=== PATIENT | male | born 1955 | race Caucasian/White ===

== ENCOUNTER 2016-12-18 12:49 | Emergency (ER) | payer OTHER ==
[~2016-12-18] VITALS: Ht 177.8 cm; Wt 131.1 kg
[~2016-12-18 12:49] MED LIST: ALLOPURINOL100 MG PO; ASPIRIN EC81 MG PO; HYDROMORPHONE HC4 MG PO; LISINOPRIL-HCT1 EACH PO; MIRALAX17 GM PO; NAPROXEN500 MG PO; OXYCODONE HCL10 MG PO; OXYCODONE HCL5 MG PO; PERCOCET 7.5-31 EACH PO; PRILOSEC20 MG PO; XARELTO10 MG PO
[2016-12-18] MEDS ORDERED: PRINIVIL20 MG PO (13:05)
[2016-12-18] MEDS ORDERED: ELIQUIS5 MG PO (13:06)
[2016-12-18] MEDS ORDERED: GLUCOPHAGE500 MG PO (13:07)
[2016-12-18] MEDS ORDERED: METOPROLOL SUCC50 MG PO (13:09)
[2016-12-18] MEDS ORDERED: FUROSEMIDE20 MG PO (13:21)
--- NOTE | 2016-12-18 14:04 | EKG ---
[facility] [address] [facility] [place], [place] [address] Signed Normal sinus rhythm Incomplete right bundle branch block Possible Right ventricular hypertrophy Nonspecific ST and T wave abnormality Abnormal ECG No previous ECGs available Confirmed by JASON SAEED MD ([id number]) on 12/18/2016 2:04:13 PM Electronically Signed By: JASON SAEED MD 12/18/16 1404 PATIENT NAME: PRASHANTSHANNAKIEL LANDIN Electrocardiogram DATE OF : 57 PHYSICIAN: JASON SAEED MD REPORT #: [id number] REPORT IS CONFIDENTIAL AND NOT TO BE RELEASED WITHOUT AUTHORIZATION
== END 2016-12-18 15:23 | disposition home or self-care (01) ==
LOC: ED 12:49
DX: R06.02 Shortness of breath (principal); I10 Essential (primary) hypertension; I48.91 Unspecified atrial fibrillation; Z79.899 Other long term (current) drug therapy; Z79.84 Long term (current) use of oral hypoglycemic drugs
CPT/HCPCS: 71010; 80048; 84484; 85025; 85610; 93005; 93010; 99284

== ENCOUNTER 2017-12-19 01:08 | Emergency (ER) | payer OTHER ==
[~2017-12-19] VITALS: Ht 177.8 cm; Wt 131.1 kg
[~2017-12-19 01:08] MED LIST changes: +ELIQUIS5 MG PO; +FUROSEMIDE20 MG PO; +GLUCOPHAGE500 MG PO; +METOPROLOL SUCC50 MG PO; +PRINIVIL20 MG PO
--- NOTE | 2017-12-20 14:41 | EKG ---
[facility] [address] [facility] [place] [address] Signed Normal sinus rhythm Rightward axis Borderline ECG When compared with ECG of 18-DEC-2016 12:57, Non-specific change in ST segment in Inferior leads Nonspecific T wave abnormality no longer evident in Anterolateral leads QT has lengthened Confirmed by LUBA JOHNSON DO ([id number]) on 12/20/2017 2:41:03 PM Electronically Signed By: LUBA JOHNSON DO 12/20/17 1441 PATIENT NAME: CERDASHANNA Electrocardiogram DATE OF : 57 PHYSICIAN: LUBA JOHNSON DO REPORT #: [id number] REPORT IS CONFIDENTIAL AND NOT TO BE RELEASED WITHOUT AUTHORIZATION
== END 2017-12-19 05:24 | disposition home or self-care (01) ==
LOC: ED 01:08
DX: R07.89 Other chest pain (principal); J18.9 Pneumonia, unspecified organism; R60.0 Localized edema; I10 Essential (primary) hypertension; E11.9 Type 2 diabetes mellitus without complications; Z87.891 Personal history of nicotine dependence; Z79.84 Long term (current) use of oral hypoglycemic drugs; Z79.899 Other long term (current) drug therapy
CPT/HCPCS: 71046; 71260; 80053; 84484; 85025; 85379; 93005; 93010; 96374; 96375; 99285; J2270; J2405; Q9967

== ENCOUNTER 2018-06-23 05:45 | Day surgery (SDC) | payer OTHER ==
[~2018-06-23] VITALS: Ht 177.8 cm; Wt 130.6 kg
[~2018-06-23 05:45] MED LIST changes: +ASPIR-LOW81 MG PO; +GLUCOPHAGE XR500 MG PO; -GLUCOPHAGE500 MG PO; +PRILOSEC OTC20 MG PO; -PRILOSEC20 MG PO; +PROMETH-CODEIN 65 ML PO; +VENTOLIN HFA18 GM INH; +ZITHROMAX500 MG PO
--- NOTE | 2018-06-23 09:28 | NUR ---
06/23/18 0928 Iram Ceja 0922-PATIENT ARRIVED TO PACU ON 6L MASK RR EVEN. PATIENT AWAKE DROWSY DENIES PAIN OR NAUSEA. DENIES SOB. GLUCOSE CHECKED 154. SR.
--- NOTE | 2018-06-23 10:05 | NUR ---
PT IS BACK TO DS FROM PACU. IS AT THE BEDSIDE. PT IS AWAKE, NOT C/O PAIN OR NAUSEA AT THIS TIME. CALL LIGHT IS WITHIN REACH. WATER ON BEDSIDE TABLE. NO ADDITIONAL NEEDS AT THIS TIME.
--- NOTE | 2018-06-23 10:39 | NUR ---
PT IS HELPED UP OOB TO THE BATHROOM WHERE HE IS ABLE TO VOID 150ML. HE WALKS BACK TO HIS ROOM.
--- NOTE | 2018-06-23 11:23 | NUR ---
LE 1105: PATIENT'S SPOUSE COMES TO THE NURSE'S STATION AND ASKS "WHEN CAN HE GO?". DC INSTRUCTIONS ARE GIVEN AND PATIENT AND SPOUSE BOTH VERBALIZE UNDERSTANDING. PATIENT DRESSING SELF IN PRESENCE OF SPOUSE.
--- NOTE | 2018-06-23 15:31 | OR ---
[facility] [address] [place], [place] [address] Signed DATE OF OPERATION: 06/23/2018 SURGEON: Manjit Recinos MD PREOPERATIVE DIAGNOSES: 1. Progressive mediastinal adenopathy including subcarinal adenopathy. 2. Morbid obesity. POSTOPERATIVE DIAGNOSES: 1. Progressive mediastinal adenopathy including subcarinal adenopathy. 2. Morbid obesity. PROCEDURE PERFORMED: 1. Flexible bronchoscopy. 2. Transbronchial needle biopsy of subcarinal lymph nodes (gabriela station 7). ANESTHESIA: General endotracheal. Cherrie Nettles CRNA. INDICATION: This very obese 63-year-old white man has lifelong history of smoking. He was last seen by me in 2014, at which time he underwent cholecystectomy. The patient had a CT scan of chest to rule out pulmonary embolism instead, found to have congestive heart failure problem. He was hospitalized at [facility] on [address] for 5 days and underwent diuresis and other supportive measures. A CT scan performed May 04, 2018, showed mediastinal adenopathy including a 33 mm subcarinal lymph node as well as 15 mm precarinal lymph node. The patient has had a CT scan in the past year. Recent CT showed adenopathy has enlarged. He has had no associated hemoptysis. Concern is maintained for possible sarcoidosis, though the possibility of lung cancer, despite no parenchymal lesion of the lung on CT scan is noted as well. Although, mediastinoscopy is an option to better characterize the mediastinal adenopathy, a less invasive approach of bronchoscopy with transbronchial biopsy of subcarinal lymph nodes may be more helpful and of less hazard at least at this point. The risks of bleeding, infection, and other unforeseen complications were reviewed with the patient and his . They understand and wished to proceed. FINDINGS: Electronically Signed By: MANJIT RECINOS MD 06/23/18 1531 PATIENT NAME: SHANNA CERDA OPERATIVE REPORT DATE OF : 57 REPORT #: [id number] PHYSICIAN: MANJIT RECINOS MD PCP: FREDDY MARTIN MD REPORT IS CONFIDENTIAL AND NOT TO BE RELEASED WITHOUT AUTHORIZATION [facility] [address] [place], [place] [address] Signed Reasonably conventional bronchial anatomy was noted. The right upper lobe appeared to have only two segments at the right upper lobe bronchus itself. One would expect three of course. The remaining lung on both left and right sides have conventional bronchial anatomy otherwise. Biopsies were taken in the region of the edelmira corresponding to subcarinal lymph node station 7 with transbronchial technique with two separate needle approaches. The tissue was noted in the CytoLyt solution. Pathology is pending. He suffered no complications and no untoward bleeding. DESCRIPTION OF PROCEDURE: The patient was brought to the operating room, given a general endotracheal anesthetic. An adapter was applied to the endotracheal tube and a flexible bronchoscope with video camera was passed down the endotracheal tube ultimately identifying the edelmira. It appeared to be nondistorted. The distal trachea was normal. The scope was advanced 1st to the right side for examination undertaken showing the right upper lobe bronchus to have only two segments initially noted. The bronchus intermedius was normal in the middle lobe and two segmental bronchi appeared normal. The lower lobe bronchus and segmental bronchi were normal as was the superior segmental bronchus. Scope was withdrawn to the main edelmira and then passed to the left side. The left upper lobe and segmental bronchi were normal. The lower lobe bronchus was normal as were the segmental basilar bronchi. Scope was then withdrawn to the edelmira once again. Using a two needle biopsy device puncture into the region of the edelmira was undertaken with aspiration technique. Multiple passes were taken, only minimal amount of bleeding was noted. Scant tissue was noted. A single lumen needle was then passed in similar technique with aspiration suction technique additionally providing more tissue. Inspection of the CytoLyt solution showed bits of tissue within the solution hopefully to allow reasonable diagnostic impression. Multiple passes were taken through this tissue, subcarinal lymph node in a transbronchial technique. Reinspection showed no sign of bleeding or other problem. The scope was removed. The patient was ultimately extubated and transferred to recovery room in good condition having suffered no complications. Manjit Recinos MD /JESSICAL /[id number] Electronically Signed By: MANJIT RECINOS MD 06/23/18 1531 PATIENT NAME: SHANNA CERDA OPERATIVE REPORT DATE OF : 57 REPORT #: [id number] PHYSICIAN: MANJIT RECINOS MD PCP: FREDDY MARTIN MD REPORT IS CONFIDENTIAL AND NOT TO BE RELEASED WITHOUT AUTHORIZATION [address] [address] Signed cc: MD Freddy Wynn MD Copies: JASON SAEED MD, JONATHAN MD ~ Electronically Signed By: MANJIT RECINOS MD 06/23/18 1531 PATIENT NAME: SHANNA CERDA OPERATIVE REPORT DATE OF : 57 REPORT #: [id number] PHYSICIAN: MANJIT RECINOS MD PCP: FREDDY MARTIN MD REPORT IS CONFIDENTIAL AND NOT TO BE RELEASED WITHOUT AUTHORIZATION
== END 2018-06-23 11:15 | disposition home or self-care (01) ==
LOC: DS 05:45
PROVIDERS: Surgery
PROC: 07978ZX Drainage of Thorax Lymphatic, Via Natural or Artificial Opening Endoscopic Approach, Diagnostic (ICD-10-PCS; principal; 2018-06-23 06:45)
DX: R59.0 Localized enlarged lymph nodes (principal); I11.0 Hypertensive heart disease with heart failure; I50.9 Heart failure, unspecified; E11.9 Type 2 diabetes mellitus without complications; J44.9 Chronic obstructive pulmonary disease, unspecified; I25.10 Atherosclerotic heart disease of native coronary artery without angina pectoris; I48.91 Unspecified atrial fibrillation; E66.01 Morbid (severe) obesity due to excess calories; Z87.891 Personal history of nicotine dependence; Z79.899 Other long term (current) drug therapy; Z79.84 Long term (current) use of oral hypoglycemic drugs; Z90.49 Acquired absence of other specified parts of digestive tract; Z79.51 Long term (current) use of inhaled steroids; Z79.82 Long term (current) use of aspirin; Z68.41 Body mass index [BMI] 40.0-44.9, adult
CPT/HCPCS: 00520; J0690; J1100; J2250; J2405; J7120

== ENCOUNTER 2021-10-21 07:45 | Emergency (ER) | payer MEDICARE, OTHER ==
[~2021-10-21] VITALS: Ht 177.8 cm; Wt 126.1 kg
[~2021-10-21 07:45] MED LIST changes: +ASPIRIN EC325 MG PO; +CELECOXIB200 MG PO; +GABAPENTIN600 MG PO; +GLIPIZIDE XL2.5 MG PO; +HYDROMORPHONE HC2 MG PO; +KLOR-CON 1010 MEQ PO; +SENNA LAX8.6 MG PO; +TYLENOL EXTRA500 MG PO; +VITAMIN D325 MC1 PO
[2021-10-21] MEDS ORDERED: LIPITOR10 MG PO (08:06)
[2021-10-21] MEDS ORDERED: CEPHALEXIN500 M1 PO (08:07)
== END 2021-10-21 08:35 | disposition home or self-care (01) ==
LOC: ED 07:45
DX: S80.812A Abrasion, left lower leg, initial encounter (principal); S80.811A Abrasion, right lower leg, initial encounter; L03.115 Cellulitis of right lower limb; I48.91 Unspecified atrial fibrillation; I10 Essential (primary) hypertension; E11.9 Type 2 diabetes mellitus without complications; Z87.891 Personal history of nicotine dependence; Z79.82 Long term (current) use of aspirin; Z79.899 Other long term (current) drug therapy; Z79.84 Long term (current) use of oral hypoglycemic drugs; W20.8XXA Other cause of strike by thrown, projected or falling object, initial encounter
CPT/HCPCS: 99283

== ENCOUNTER 2024-07-20 12:09 | Emergency (ER) | payer MEDICARE, OTHER ==
[~2024-07-20] VITALS: Ht 177.8 cm; Wt 122.8 kg
[~2024-07-20 12:09] MED LIST changes: +CEPHALEXIN500 M1 PO; +LIPITOR10 MG PO; +VAZALORE81 MG PO
[2024-07-20] MEDS ORDERED: FREESTYLE LIBR1 EAC8 MC (12:19)
[2024-07-20] MEDS ORDERED: LANTUS SOL100 UNIT/1 SUB-Q (12:19)
[2024-07-20] MEDS ORDERED: VENTOLIN HFA18 GM INH (12:20)
[2024-07-20] MEDS ORDERED: ASPIRIN 81 MG CHEW PO ONE (12:30)
[2024-07-20 12:39] LABS: BASOPHILS 1.1 % (0-2); EOSINOPHILS 2.2 % (0-6); HEMATOCRIT 38.2 % (35.0-50.0); HEMOGLOBIN 13.3 g/dL (12.0-18.0); MCH 27.9 (27-36); MCHC 34.9 g/dl (30-36); MCV 79.9 fl (81-99); MONOCYTES 8.3 % (0-12); NEUTROPHILS 64.4 % (39-80); PLATELET COUNT 206 K/uL (140-440); RBC 4.78 M/ul (4.3-5.7); RDW 15.8 (10.5-15.0)
[2024-07-20 13:03] LABS: ALBUMIN 3.2 g/dL (3.4-5.0); ALBUMIN/GLOBULIN RATIO 0.91 (1.1-2.4); ANION GAP 9.7 (7-21); BILIRUBIN, TOTAL 0.8 mg/dL (0.2-1.0); BUN/CREATININE RATIO 29.57 (6.0-28.6); CALCIUM 9.1 mg/dL (8.5-10.1); CREATININE, SERUM 0.71 mg/dL (0.70-1.30); MAGNESIUM 1.3 mg/dL (1.8-2.4); POTASSIUM 3.7 mmol/L (3.5-5.1); PROTEIN, TOTAL 6.7 g/dL (6.4-8.2)
[2024-07-20 13:30] VITALS: BP 122/66
--- NOTE | 2024-07-20 22:09 | EKG ---
[facility] [address] [facility] [place] [address] Signed Normal sinus rhythm Normal ECG When compared with ECG of 22-JUN-2018 15:09, Questionable change in QRS axis Confirmed by Eduardo Chatterjee MD () on 07/20/2024 10:08:56 PM Electronically Signed By: EDUARDO CHATTERJEE MD 07/20/24 2209 PATIENT NAME: SHANNA CERDA Electrocardiogram DATE OF : 57 PHYSICIAN: EDUARDO CHATTERJEE MD REPORT #: [id number] REPORT IS CONFIDENTIAL AND NOT TO BE RELEASED WITHOUT AUTHORIZATION
== END 2024-07-20 13:30 | disposition home or self-care (01) ==
LOC: ED 12:09
PROVIDERS: Emergency Medicine
DX: R07.89 Other chest pain (principal); I11.0 Hypertensive heart disease with heart failure; I50.9 Heart failure, unspecified; I48.91 Unspecified atrial fibrillation; Z79.82 Long term (current) use of aspirin; Z79.84 Long term (current) use of oral hypoglycemic drugs; Z79.4 Long term (current) use of insulin; Z79.899 Other long term (current) drug therapy; Z87.891 Personal history of nicotine dependence
CPT/HCPCS: 36415; 71045; 80053; 82947; 83735; 83880; 84484; 85025; 93005; 93010; 99285-25; A9270

== ENCOUNTER 2024-09-28 15:33 | Emergency (ER) | payer MEDICARE, OTHER ==
[~2024-09-28] VITALS: Ht 177.8 cm; Wt 139.5 kg
[~2024-09-28 15:33] MED LIST changes: +FREESTYLE LIBR1 EAC8 MC; +LANTUS SOL100 UNIT/1 SUB-Q
[2024-09-28 16:43] LABS: BASOPHILS 0.6 % (0.2-1.2); HEMATOCRIT 37.6 % (40.1-51.0); HEMOGLOBIN 11.9 g/dL (13.7-17.5); LYMPHOCYTES 19.9 % (21.8-53.1); MCH 25.9 PG (25.7-32.2); MCHC 31.6 g/dL (32.3-36.5); MCV 81.9 fL (79.0-92.2); MONOCYTES 8.4 % (5.3-12.2); NEUTROPHILS 68.8 % (34.0-67.9); PLATELET COUNT 245 K/uL (163-337); RBC 4.59 M/uL (4.63-6.08)
[2024-09-28 17:05] LABS: ALBUMIN/GLOBULIN RATIO 0.81 (1.1-2.4); ALKALINE PHOSPHATASE 105 U/L (46-116); ALT (SGPT) 28 U/L (14-59); ANION GAP 5.8 (7-21); AST (SGOT) 21 U/L (15-37); BILIRUBIN, TOTAL 0.7 mg/dL (0.2-1.0); BUN/CREATININE RATIO 18.51 (6.0-28.6); CALCIUM 8.6 mg/dL (8.5-10.1); CARBON DIOXIDE 33 mmol/L (21-32); CHLORIDE 98 mmol/L (98-107); CREATININE, SERUM 1.08 mg/dL (0.70-1.30); GLOMERULAR FILTRATION RATE,EST 75 mL/min (>60); MAGNESIUM 1.4 mg/dL (1.8-2.4); POTASSIUM 3.8 mmol/L (3.5-5.1); PROTEIN, TOTAL 6.7 g/dL (6.4-8.2); UREA NITROGEN 20 mg/dL (7-18)
[2024-09-28] MEDS ORDERED: MAGNESIUM SULFATE 2 GM/50 ML BAG IV ONE (18:00)
[2024-09-28] MEDS ORDERED: ONDANSETRON 4 MG TAB ODT SL ONE (18:00)
[2024-09-28] MEDS ORDERED: HYDROCODONE/ACETA 5/325 TAB PO ONE (18:00)
[2024-09-28] MEDS ORDERED: HYDROCODONE BIT/ACETAMINOPHEN 5/325 MG 1 TAB HOME.PACK PO ONE (19:00)
[2024-09-28] MEDS ORDERED: HYDROCODON-ACE1 EA10 PO (19:01)
[2024-09-28] MEDS ORDERED: ONDANSETRON ODT4 MG PO (19:01)
[2024-09-28 19:10] VITALS: BP 128/74
--- NOTE | 2024-09-30 13:23 | EKG ---
[facility] [facility] [address] [facility] [place] [address] Signed Normal sinus rhythm Abnormal ECG When compared with ECG of 20-JUL-2024 12:10, No significant change was found Confirmed by Luc Smith MD ([id number]) on 09/30/2024 1:23:22 PM Electronically Signed By: LUC SMITH MD 09/30/24 1323 PATIENT NAME: SHANNA CERDA URVASHI Electrocardiogram DATE OF : 57 PHYSICIAN: LUC SMITH MD REPORT #: [id number] REPORT IS CONFIDENTIAL AND NOT TO BE RELEASED WITHOUT AUTHORIZATION
== END 2024-09-28 19:10 | disposition home or self-care (01) ==
LOC: ED 15:33
PROVIDERS: Emergency Medicine
DX: R10.13 Epigastric pain (principal); I11.0 Hypertensive heart disease with heart failure; Z87.891 Personal history of nicotine dependence; Z79.4 Long term (current) use of insulin; Z79.890 Hormone replacement therapy; Z79.899 Other long term (current) drug therapy; Z79.82 Long term (current) use of aspirin; Z79.84 Long term (current) use of oral hypoglycemic drugs
CPT/HCPCS: 36415; 71045; 80053; 83690; 83735; 83880; 84484; 85025; 93005; 93010; 96365; 99284-25; A9270; J3475

== ENCOUNTER 2024-11-06 10:14 | Emergency (ER) | payer MEDICARE, OTHER ==
[~2024-11-06] VITALS: Ht 177.8 cm; Wt 114.5 kg
[~2024-11-06 10:14] MED LIST changes: +HYDROCODON-ACE1 EA10 PO; +ONDANSETRON ODT4 MG PO
[2024-11-06 10:45] LABS: BASOPHILS 0.4 % (0.2-1.2); EOSINOPHILS 2.2 % (0.8-7.0); HEMATOCRIT 40.6 % (40.1-51.0); HEMOGLOBIN 13.1 g/dL (13.7-17.5); LYMPHOCYTES 17.1 % (21.8-53.1); MCH 25.9 PG (25.7-32.2); MCHC 32.3 g/dL (32.3-36.5); MCV 80.2 fL (79.0-92.2); NEUTROPHILS 71.1 % (34.0-67.9); PLATELET COUNT 306 K/uL (163-337); RBC 5.06 M/uL (4.63-6.08)
[2024-11-06 11:02] LABS: ALBUMIN 3.2 g/dL (3.4-5.0); ALBUMIN/GLOBULIN RATIO 0.8 (1.1-2.4); ANION GAP 12.2 (7-21); BILIRUBIN, TOTAL 0.8 mg/dL (0.2-1.0); BUN/CREATININE RATIO 16.48 (6.0-28.6); CALCIUM 9.1 mg/dL (8.5-10.1); CREATININE, SERUM 0.91 mg/dL (0.70-1.30); POTASSIUM 4.2 mmol/L (3.5-5.1); PROTEIN, TOTAL 7.2 g/dL (6.4-8.2)
[2024-11-06] MEDS ORDERED: MAGNESIUM HYDROXIDE/AL HYDROX 30 ML CUP PO ONE (12:15)
[2024-11-06] MEDS ORDERED: PANTOPRAZOLE SODIUM 40 MG/10 ML VIAL IV ONE (12:15)
[2024-11-06] MEDS ORDERED: METRONIDAZOLE500 MG PO (15:24)
[2024-11-06] MEDS ORDERED: CIPRO500 MG PO (15:24)
[2024-11-06 15:40] VITALS: BP 131/70
--- NOTE | 2024-11-07 12:14 | EKG ---
[facility] [address] [facility] [place] [address] Signed Normal sinus rhythm Normal ECG When compared with ECG of 28-SEP-2024 16:23, Nonspecific T wave abnormality now evident in Anterior leads Confirmed by Carlos Kahn DO ([id number]) on 11/07/2024 12:14:44 PM Electronically Signed By: CARLOS KAHN DO 11/07/24 1214 PATIENT NAME: SHANNA CERDA Electrocardiogram DATE OF : 57 PHYSICIAN: CARLOS KAHN DO REPORT #: [id number] REPORT IS CONFIDENTIAL AND NOT TO BE RELEASED WITHOUT AUTHORIZATION
== END 2024-11-06 15:40 | disposition home or self-care (01) ==
LOC: ED 10:14
PROVIDERS: Emergency Medicine
DX: K52.9 Noninfective gastroenteritis and colitis, unspecified (principal); E27.9 Disorder of adrenal gland, unspecified; R91.8 Other nonspecific abnormal finding of lung field; R59.0 Localized enlarged lymph nodes; R93.5 Abnormal findings on diagnostic imaging of other abdominal regions, including retroperitoneum; E11.9 Type 2 diabetes mellitus without complications; I11.0 Hypertensive heart disease with heart failure; I50.9 Heart failure, unspecified; I48.91 Unspecified atrial fibrillation; Z79.84 Long term (current) use of oral hypoglycemic drugs; Z79.82 Long term (current) use of aspirin; Z79.4 Long term (current) use of insulin; Z79.899 Other long term (current) drug therapy; Z79.891 Long term (current) use of opiate analgesic
CPT/HCPCS: 36415; 71045; 71250; 74177; 80053; 83605; 83690; 83880; 84484; 85025; 93005; 93010; 99285-25; A9270; J2470; Q9967